=== PATIENT | female | born 1985 | race Caucasian/White ===

== ENCOUNTER 2018-08-22 10:12 | Outpatient (CLI) | payer MEDICAID | END 2018-08-22 10:13 | disposition home or self-care (01) | LOC: C.PAT 10:12 | DX: J34.2 Deviated nasal septum (principal); J34.3 Hypertrophy of nasal turbinates; J32.0 Chronic maxillary sinusitis; J32.1 Chronic frontal sinusitis; J32.2 Chronic ethmoidal sinusitis; J32.3 Chronic sphenoidal sinusitis ==

== ENCOUNTER 2018-08-30 06:51 | Observation (INO) | payer MEDICAID ==
[2018-08-10 12:51] VITALS: BMI 24.3
[2018-08-30] MEDS ORDERED: ceFAZolin 1 gm in NS 1 GM/100 ML BAG IVPB ONE (06:59)
[2018-08-30] MEDS ORDERED: EPINEPHrine 1:1000 Nasal Sol(30mL) ONE (06:59)
[2018-08-30] MEDS ORDERED: Lidocaine/Epinephrine 1% 1:100000 10 ML IJ ONE (07:00)
[2018-08-30] MEDS ORDERED: Propofol 10 mg/ml Inj (20 ML) ONE (08:21)
[2018-08-30] MEDS ORDERED: Midazolam 2 MG/2 ML VIAL ONE (08:22)
[2018-08-30] MEDS ORDERED: Acetaminophen-Codeine 300/30 mg Tab PO PRN (08:43)
[2018-08-30] MEDS: HYDROmorphone 0.5 mg/0.5 ml ISec IVP PRN ×3 (10:49→13:37)
[2018-08-30] MEDS ORDERED: HYDROmorphone 0.5 mg/0.5 ml ISec ONE (10:52)
--- NOTE | 2018-08-30 11:31 | CP.PCM.PN ---
Subjective - Date & Time of Evaluation Date of Evaluation: 08/30/18 Time of Evaluation: 11:00 - Subjective Subjective: patient brought o recovery room awake and stable. Uneventful perioperative status. In pacu nurse states patient complaining of chest pain no radiating. Stable vitals, 101/62 HR 65 100% 12 lead EKG completed industrial ecologist called Dr Lomeli no previous EKG available for comparison. Troponin level drawn. No further complaints at this time will continue to observe. No known past medical history. Objective - Vital Signs/Intake and Output Vital Signs (last 24 hours): Temp Pulse Resp BP Pulse Ox 97.8 F 67 18 99/65 L 100 08/30/18 07:40 08/30/18 07:40 08/30/18 07:40 08/30/18 07:40 08/30/18 07:40 Intake and Output: 08/30/18 08/30/18 06:59 18:59 Intake Total 800 Balance 800 - Medications Medications: Current Medications Acetaminophen (Tylenol 325mg Tab) 650 mg PO Q6 PRN PRN Reason: Pain, moderate (4-7) Hydromorphone HCl (Dilaudid) 0.5 mg IVP Q5M PRN PRN Reason: Pain, moderate (4-7) Stop: 08/30/18 12:46 Last Admin: 08/30/18 11:20 Dose: 0.5 mg Dextrose/Sodium Chloride (Dextrose 5%/0.45% Ns 1000 Ml) 1,000 mls @ 100 mls/hr IV .Q10H RENEE Ondansetron HCl (Zofran Inj) 4 mg IVP ONCE PRN PRN Reason: Nausea/Vomiting Stop: 08/30/18 12:46
--- NOTE | 2018-08-30 12:49 | OP ---
PROCEDURE DATE: 08/30/2018 PREOPERATIVE DIAGNOSES: Deviated septum, large turbinates, sinusitis. POSTOPERATIVE DIAGNOSES: Deviated septum, large turbinates, sinusitis. PROCEDURES: Septoplasty, endoscopic bilateral maxillary antrostomy, endoscopic bilateral ethmoidectomy, endoscopic bilateral sphenoidotomy, endoscopic bilateral frontal sinusotomy, endoscopic bilateral inferior turbinate reduction. SIGNIFICANT FINDINGS: Deviated septum, large turbinates, sinusitis, maxillary antrum stenosed on both sides, frontal recess stenosed on both sides, sphenoid antrum stenosed on both sides, sinusitis changes noted in the ethmoid sinuses. DESCRIPTION OF PROCEDURE: The patient was brought into room, placed in supine position. Anesthesia initiated through an ET tube. The patient was draped in usual manner. The navigation was set up and used throughout the case in order to ensure that the skull base and orbit were not entered. Adrenaline-soaked pledgets were inserted into nasal cavity, remained there for 5 minutes and removed. The septum was injected with lidocaine with epinephrine on both sides. A Owen incision was made on the left and mucoperichondrial flap was raised. A vertical incision was made in the cartilage, leaving a 1.5 cm of the anterior superior strut and mucoperichondrial flap was raised on the other side. Deviated portion of the cartilage and bone were removed using forceps and chisel. A quilting suture was used to suture the two flaps together and close the Orason incision. A 0-degree scope was inserted into the nasal cavity and the inferior turbinates were noted to be enlarged and reduced, going from an inferior to superior, anterior posterior direction on both sides, first on the left and then on the right. Bleeding was controlled using suction cautery. Attention was turned to the left and the inferior turbinate was injected with lidocaine and epinephrine and medialized. The uncinate process was medialized using a Corn elevator and removed using forceps. A debrider was used to enter the ethmoid bulla inferomedially going posteriorly to the basal lamella anterior and superiorly until the ethmoid bulla was removed. The basal lamella was entered. Posterior ethmoid cells were entered and opened. The skull base was identified and followed anteriorly all the way to the area of anterior ethmoid air cells. Frontal recess was noted to be stenosed and opened using forceps. The maxillary antrum was noted to be stenosed and opened using forceps. Attention was turned to the other side after bleeding was controlled on the left. The middle turbinate was injected with lidocaine with epinephrine and medialized. The uncinate process was medialized using a Corn elevator and removed using forceps. A debrider was used to enter the ethmoid bulla inferomedially going posteriorly to the basal lamella anterior and superiorly until the ethmoid bulla was removed. The basal lamella was entered. The posterior ethmoid cells were entered and opened. The skull base was identified and followed anteriorly all the way to the area of the anterior ethmoid air cells. Frontal recess was noted to be stenosed and opened using forceps. The maxillary antrum was noted to be stenosed and opened using forceps. Bleeding was controlled using suction cautery. The sphenoid antrum was noted to be stenosed and opened using forceps. Attention was turned back to the left. The sphenoid antrum was noted to be stenosed and opened using forceps. Bleeding was controlled. Stents were placed. Splints were placed. The patient was taken off anesthesia and taken to recovery room in stable manner. Freeman Gottlieb MD [facility]
--- NOTE | 2018-08-30 14:33 | CP.PCM.CON ---
<Carmelina Bell - Last Filed: 08/30/18 18:17> History of Present Illness - History of Present Illness History of Present Illness: Cardiology Consult for Dr. Jackson: 33 year old female with no past medical history complains of chest pain s/p septoplasty for a deviated septum. Patient states after her surgery the pain was located in the substernal area radiating to her back. She states now it is no longer radiating. She states the pain is a pressure-like and it comes and goes and lasts for 10 minutes. She states nothing makes the pain better or worse. She states she just feels tired. She states she has never had this pain before. PMD: Dr. Lomeli Past Medical history: denies Past Surgical history: x3 Medications: denies Allergies: Codeine - swelling and itching Family History: Dad - Diabetes Social History: denies smoking, alcohol or illicit drug use. Review of Systems - Constitutional Constitutional: absent: Chills, Fever - EENT Eyes: absent: Blurred Vision - Cardiovascular Cardiovascular: Chest Pain. absent: Dyspnea, Leg Edema, Palpitations - Respiratory Respiratory: absent: Dyspnea - Gastrointestinal Gastrointestinal: absent: Abdominal Pain, Nausea, Vomiting - Musculoskeletal Musculoskeletal: absent: Numbness, Tingling - Neurological Neurological: absent: Dizziness Past Patient History - Infectious Disease Hx of Infectious Diseases: None - Past Medical History & Family History Past Medical History?: Yes - Past Social History Smoking Status: Never Smoked - HEENT Hx HEENT Problems: Yes Other/Comment: HX: DEVIATED SEPTUM, ENLARGED TURBINATES, MAXILLARY SINSUS, FRONTAL SINSUS, SPHENOID SINSUS. - SURGICAL HISTORY Hx Surgeries: Yes Hx Section: Yes (X3) - ANESTHESIA Hx Anesthesia: Yes Hx Anesthesia Reactions: No Hx Malignant Hyperthermia: No Meds Allergies/Adverse Reactions: Allergies Allergy/AdvReac Type Severity Reaction Status Date / Time hydrocodone Allergy SWELLING Verified 08/31/18 15:55 - Medications Medications: Current Medications Acetaminophen (Tylenol 325mg Tab) 650 mg PO Q6 PRN PRN Reason: Pain, moderate (4-7) Aspirin (Aspirin Chewable) 81 mg PO DAILY RENEE Dextrose/Sodium Chloride (Dextrose 5%/0.45% Ns 1000 Ml) 1,000 mls @ 100 mls/hr IV .Q10H RENEE Rosuvastatin Calcium (Crestor) 40 mg PO DAILY [facility] Physical Exam - Constitutional Appears: Non-toxic, No Acute Distress - Head Exam Head Exam: ATRAUMATIC, NORMAL INSPECTION - Eye Exam Eye Exam: EOMI, Normal appearance - ENT Exam ENT Exam: Mucous Membranes Dry - Respiratory Exam Respiratory Exam: Clear to Auscultation Bilateral, NORMAL BREATHING PATTERN - Cardiovascular Exam Cardiovascular Exam: REGULAR RHYTHM, RRR, +S1, +S2. absent: Tachycardia, Diastolic murmur, Gallop, JVD, Systolic Murmur - GI/Abdominal Exam GI & Abdominal Exam: Normal Bowel Sounds, Soft. absent: Tenderness - Extremities Exam Extremities exam: Positive for: normal capillary refill, normal inspection, pedal pulses present. Negative for: pedal edema, tenderness - Neurological Exam Neurological exam: Alert, Oriented x3 - Skin Skin Exam: Normal Color Results - Vital Signs Recent Vital Signs: Last Vital Signs Temp 97 F L 08/30/18 10:44 Pulse 66 08/30/18 14:00 Resp 15 08/30/18 14:00 BP 116/77 08/30/18 14:00 Pulse Ox 100 08/30/18 14:00 - Labs Labs: Laboratory Results - last 24 hr 08/30/18 11:35 Troponin I < 0.0120 Assessment & Plan - Assessment and Plan (Free Text) Assessment: Chest pain - EKG: t-wave depression - Trop: negative - f/u ECHO - f/u stress test 08/31/[address] Manuel Bell PGY-2 <Tera Jackson - Last Filed: 08/31/18 21:26> Results - Vital Signs Recent Vital Signs: Last Vital Signs Temp 97.7 F 08/31/18 07:00 Pulse 63 08/31/18 07:00 Resp 20 08/31/18 07:00 BP 99/67 L 08/31/18 07:00 Pulse Ox 100 08/31/18 07:00 - Labs Labs: Laboratory Results - last 24 hr 08/30/18 23:02 Total Creatine Kinase 61 CK-MB (Mass) 0.74 Troponin I < 0.0120 Assessment & Plan - Assessment and Plan (Free Text) Assessment: Patient examined and evaluated personally by me. Plan of care d/w the medical research scientist and as documented
[2018-08-30 18:09] LABS: CK-MB 0.85 ng/mL (0.0-3.38)
[2018-08-30 20:11] VITALS: RESP 20
[2018-08-30] MEDS: Dextrose 5%/0.45% NS 1,000 ML IV SCH (21:00)
--- NOTE | 2018-08-30 21:26 | CP.PCM.HP ---
Present on Admission - Present on Admission Any Indicators Present on Admission: No Past Patient History - Infectious Disease Hx of Infectious Diseases: None - Past Medical History & Family History Past Medical History?: Yes - Past Social History Smoking Status: Never Smoked - CARDIAC Hx Cardiac Disorders: No - PULMONARY Hx Respiratory Disorders: No - NEUROLOGICAL Hx Neurological Disorder: No - HEENT Hx HEENT Problems: Yes Hx Sinusitis: Yes Other/Comment: HX: DEVIATED SEPTUM, ENLARGED TURBINATES, MAXILLARY SINSUS, FRONTAL SINSUS, SPHENOID SINSUS. - RENAL Hx Chronic Kidney Disease: No - ENDOCRINE/METABOLIC Hx Endocrine Disorders: No - HEMATOLOGICAL/ONCOLOGICAL Hx Blood Disorders: No - INTEGUMENTARY Hx Dermatological Problems: No - MUSCULOSKELETAL/RHEUMATOLOGICAL Hx Falls: No - GASTROINTESTINAL Hx Gastrointestinal Disorders: No - GENITOURINARY/GYNECOLOGICAL Hx Genitourinary Disorders: No - PSYCHIATRIC Hx Substance Use: No - SURGICAL HISTORY Hx Surgeries: Yes Hx Section: Yes (X3) Hx Tubal Ligation: Yes - ANESTHESIA Hx Anesthesia: Yes Hx Anesthesia Reactions: No Hx Malignant Hyperthermia: No Meds Allergies/Adverse Reactions: Allergies Allergy/AdvReac Type Severity Reaction Status Date / Time hydrocodone Allergy SWELLING Verified 08/31/18 15:55 Results - Vital Signs Recent Vital Signs: Last Vital Signs Temp 97.9 F 08/30/18 18:40 Pulse 71 08/30/18 18:40 Resp 20 08/30/18 18:40 BP 112/73 08/30/18 18:40 Pulse Ox 100 08/30/18 18:40 - Labs Labs: Laboratory Results - last 24 hr 08/30/18 08/30/18 11:35 17:34 Total Creatine Kinase 75 CK-MB (Mass) 0.85 Troponin I < 0.0120 < 0.0120
[2018-08-30 23:49] LABS: CK-MB 0.74 ng/mL (0.0-3.38)
--- NOTE | 2018-08-31 04:21 | CARD ---
APPROVED REPORT Date of service: 08/30/2018 EXAM: Two-dimensional and M-mode echocardiogram with Doppler and color Doppler. Other Information Quality : TDSRhythm : INDICATION Chest Pain 2D DIMENSIONS IVC0.00 cm M-Mode DIMENSIONS Left Atrium (MM)2.55 (2.5-4.0cm)IVSd0.65 (0.7-1.1cm) Aortic Root2.99 (2.2-3.7cm)LVDd4.48 (4.0-5.6cm) Aortic Cusp Exc.1.41 (1.5-2.0cm)PWd0.49 (0.7-1.1cm) FS (%) 40 %LVDs2.71 (2.0-3.8cm) LVEF (%)70 (>50%) Mitral Valve MV E Csnvwvqf19.8cm/sMV A Dztzuusl29.9cm/sE/A ratio3.4 TDI Lateral E' Peak V19.51cm/sMedial E' Peak V17.58cm/sE/Lateral E'4.4 E/Medial E'4.9 Tricuspid Valve TR Peak Fvbskjld141oq/sTR Peak Gr.63qqCoTMUD58vbKc LEFT VENTRICLE The left ventricle is normal size. There is normal left ventricular wall thickness. Left ventricle systolic function is normal. The Ejection Fraction is 65-70%. There is normal LV segmental wall motion. The left ventricular diastolic function is normal. RIGHT VENTRICLE The right ventricle is normal size. There is normal right ventricular wall thickness. The right ventricular systolic function is normal. ATRIA The left atrium size is normal. The right atrium size is normal. The interatrial septum is intact with no evidence for an atrial septal defect. AORTIC VALVE The aortic valve is normal in structure. No aortic regurgitation is present. There is no aortic valvular stenosis. MITRAL VALVE The mitral valve is normal in structure. There is no evidence of mitral valve prolapse. There is no mitral valve stenosis. There is no mitral valve regurgitation noted. TRICUSPID VALVE The tricuspid valve is normal in structure. There is mild tricuspid regurgitation. Right ventricular systolic pressure is estimated at 30-40 mmHg. There is mild pulmonary hypertension. PULMONIC VALVE The pulmonic valve is not well visualized. There is no pulmonic valvular regurgitation. GREAT VESSELS The aortic root is normal in size. PERICARDIAL EFFUSION There is no significant pericardial effusion. <Conclusion> Left ventricle systolic function is normal. The Ejection Fraction is 65-70%. No aortic regurgitation is present. There is no mitral valve regurgitation noted. There is mild tricuspid regurgitation. There is mild pulmonary hypertension. There is no pulmonic valvular regurgitation.
[2018-08-31] MEDS: Dextrose 5%/0.45% NS 1,000 ML IV SCH ×2 (04:45→06:30)
[2018-08-31] MEDS ORDERED: Caffeine Citrated **INJ** 20 MG/ML IV ONE (07:35)
[2018-08-31 07:46] VITALS: BP 99/67; TEMP 97.7; O2SAT 100
[2018-08-31 08:01] VITALS: PULSE 63
--- NOTE | 2018-08-31 08:08 | HP ---
CHIEF COMPLIANT: Chest pain. HISTORY OF PRESENT ILLNESS: This is a 33-year-old Greek female with no significant past medical history. She underwent ear, nose, and throat surgery and postoperatively she developed chest pain and Rapid Response was called and the patient was transported to telemetry floor and admitted. The patient denies any history of diabetes, hypertension, hyperlipidemia, or smoking. She denies any family history of premature coronary artery disease. The patient denies any nausea or vomiting. She denies any dyspepsia. She denies any polyuria, polydipsia, polyphagia. She denies any history of chest pain in the past. She denies any cough or sore throat. She is postop, she has a nasal packing and she has some bleeding in the throat. No fever. No chills. PAST MEDICAL HISTORY: Nothing significant. SOCIAL HISTORY: Nonsmoker. Non-ETOH user. MEDICATION: At home, she is not on any medications. ALLERGIES: SHE IS ALLERGIC TO CODEINE. PHYSICAL EXAMINATION: GENERAL: A young female in no distress with nasal packing. VITAL SIGNS: Blood pressure 112/73, pulse 72, respiratory rate 20, and temperature 97.9. SKIN: No rashes. No bruises. No purpura. HEENT: Atraumatic and normocephalic. Negative pallor. Negative jaundice. Extraocular movements are intact. NECK: Supple. No JVD. No lymph node. No thyromegaly. CHEST: Chest wall, bilateral symmetrical expansion. No tenderness. LUNGS: Clear. No rales. No rhonchi. CVS: PMI not localized. S1 and S2 regular. No heave. No thrill. ABDOMEN: Soft and nontender. Bowel sounds are positive. RECTAL: Deferred. PELVIC: Deferred. EXTREMITIES: No clubbing, cyanosis, or edema. DELIVERY ARCHITECT: Awake, alert, and oriented x3. ASSESSMENT: 1. Chest pain, rule out myocardial infarction. 2. Ear, nose, and throat surgery. PLAN: Admit, cardiac enzymes, Cardiology evaluation. Alex Gray MD
--- NOTE | 2018-08-31 10:22 | CP.PCM.PN ---
<Carmelina Bell - Last Filed: 08/31/18 14:10> Subjective - Date & Time of Evaluation Date of Evaluation: 08/31/18 Time of Evaluation: 11:00 - Subjective Subjective: Cardiology Progress Note: Patient was seen and examined at bedside in the AM. Patient states she feels well and cannot wait to go home. Patient denies chest pain, shortness of breath, palpitaitons, nausea, vomiting, diarrhea or constipation. Objective - Vital Signs/Intake and Output Vital Signs (last 24 hours): Temp Pulse Resp BP Pulse Ox 97.7 F 63 20 99/67 L 100 08/31/18 07:00 08/31/18 07:00 08/31/18 07:00 08/31/18 07:00 08/31/18 07:00 Intake and Output: 08/31/18 08/31/18 06:59 18:59 Intake Total 1240 Balance 1240 - Medications Medications: Current Medications Acetaminophen (Tylenol 325mg Tab) 650 mg PO Q6 PRN PRN Reason: Pain, moderate (4-7) Aspirin (Aspirin Chewable) 81 mg PO DAILY [facility] Dextrose/Sodium Chloride (Dextrose 5%/0.45% Ns 1000 Ml) 1,000 mls @ 100 mls/hr IV .Q10H RENEE Last Admin: 08/31/18 06:30 Dose: 100 mls/hr Ibuprofen (Motrin Tab) 800 mg PO Q8 PRN PRN Reason: Pain, moderate (4-7) Last Admin: 08/30/18 17:00 Dose: 800 mg Rosuvastatin Calcium (Crestor) 40 mg PO DAILY [facility] - Constitutional Appears: No Acute Distress - Head Exam Head Exam: ATRAUMATIC, NORMAL INSPECTION - Eye Exam Eye Exam: EOMI, Normal appearance, PERRL Pupil Exam: NORMAL ACCOMODATION - ENT Exam ENT Exam: Mucous Membranes Moist - Respiratory Exam Respiratory Exam: Clear to Ausculation Bilateral, NORMAL BREATHING PATTERN - Cardiovascular Exam Cardiovascular Exam: REGULAR RHYTHM, +S1, +S2 - GI/Abdominal Exam GI & Abdominal Exam: Soft, Normal Bowel Sounds. absent: Tenderness - Extremities Exam Extremities Exam: Normal Inspection - Neurological Exam Neurological Exam: Alert, Awake, Oriented x3 - Psychiatric Exam Psychiatric exam: Normal Affect - Skin Skin Exam: Normal Color Assessment and Plan - Assessment and Plan (Free Text) Assessment: 33 year old female with no past medical history complains of chest pain s/p septoplasty for a deviated septum. Chest pain - resolved - EKG: t-wave depression - Trop: negative x3 - ECHO: EF 65-70%; reviewed by Dr. Jackson - ECHO normal - stress test 08/31/18: reviewed by Dr. Jackson - normal Thank you for this consult. Case discussed with Dr. Manuel Bell PGY-2 <Tera Jackson - Last Filed: 08/31/18 21:26> Objective - Vital Signs/Intake and Output Vital Signs (last 24 hours): Temp Pulse Resp BP Pulse Ox 97.7 F 63 20 99/67 L 100 08/31/18 07:00 08/31/18 07:00 08/31/18 07:00 08/31/18 07:00 08/31/18 07:00 Assessment and Plan - Assessment and Plan (Free Text) Assessment: Patient examined and evaluated personally by me. Plan of care d/w the medical case manager and as documented
--- NOTE | 2018-08-31 14:34 | CARD ---
APPROVED REPORT Date of service: 08/30/2018 EKG Measurement Heart [id number] <Conclusion> Normal sinus rhythm Low voltage QRS Nonspecific T wave abnormality Abnormal ECG
--- NOTE | 2018-08-31 15:20 | CARD ---
APPROVED REPORT Date of service: 08/30/2018 EKG Measurement Heart [id number] <Conclusion> Normal sinus rhythm Low voltage QRS T wave abnormality, consider anterior ischemia Abnormal ECG
--- NOTE | 2018-08-31 23:12 | CP.PCM.DIS ---
Provider - Provider Date of Admission: 08/30/18 13:00 Attending physician: Alex Gray MD Consults: 08/30/18 11:51 Cardiology Consult Routine Comment: c/o pressure to chest Consulting Provider: Alex Gray Consulting Physician: Alex Gray Reason for Consult: pressure to chest 08/30/18 12:35 Cardiology Consult Routine Comment: chest pain Consulting Provider: Tera Jackson Consulting Physician: Tera Jackson Reason for Consult: chest pain Time Spent in preparation of Discharge (in minutes): 25 Hospital Course - Lab Results Lab Results: Most Recent Lab Values Total Creatine Kinase 61 U/L (30-135) 08/30/18 23:02 CK-MB (Mass) 0.74 ng/mL (0.0-3.38) 08/30/18 23:02 Troponin I < 0.0120 ng/mL (0.00-0.120) 08/30/18 23:02 Discharge Exam - Head Exam Head Exam: ATRAUMATIC, NORMAL INSPECTION Discharge Plan - Follow Up Plan Condition: GOOD Disposition: HOME/ ROUTINE Instructions: Chest Pain (DC), Septoplasty (DC) Additional Instructions: Please follow up with Dr. Gottlieb office tomorrow at appointment time Please follow up with Dr. Yany Pickering office in 1 week Please resume all home medications Please f/u with Dr. Gottlieb office tomorrow at appointment time Referrals: Freeman Gottlieb MD [Staff Provider] - 09/01/18
--- NOTE | 2018-09-01 02:53 | DS ---
ADMISSION DIAGNOSIS: Chest pain. DISCHARGE DIAGNOSES: 1. Noncoronary chest pain. 2. Deflected nasal septum. HISTORY OF PRESENT ILLNESS: This is a 33-year-old [place] female with history of nasal surgery, and after nasal surgery, she developed chest pain. OR was ruled out with three sets of negative cardiac enzymes negative. The patient's condition is stable upon discharge, and she is for discharge. PHYSICAL EXAMINATION: VITAL SIGNS: Blood pressure 99/67, pulse 69, respiratory rate 20, temperature 97.7. LABORATORY DATA: Cardiac enzymes x3 negative. CONDITION UPON DISCHARGE: The patient's condition is stable. She is for discharge. Alex Gray MD
--- NOTE | 2018-09-05 16:59 | CARD ---
APPROVED REPORT Date of service: 08/31/2018 Protocol: LEXISCAN Test Type: LEXISCAN Test Indications: CHEST PAIN Medical History: CP Target HR: 186 bpm Resting ECG: NSR WITH FLATTENED ST Resting Heart Rate: 67 bpm Resting Blood Pressure: 126/80mmHg submaximum (85%): 158 bpm TEST SUMMARY [id number].01:[id number]/80.0. INFUSIONDOSE 100:300.00.01.085/.0. [id number]/80.0. PROCEDURE Pharmacologic stress testing was performed using 0.4mg per 5ml of regadenoson given intravenously over 7-10 seconds. POST EXERCISE Reason for Termination: Protocol Completed Target HR: No Max HR: 85 bpm 68% of Maximum Predicted HR: 186 bpm Exercise duration: 00:30 min:sec, 0 Stage Exercise capacity: 1.0METs Max Blood Pressure: 126/80mmHg Blood Pressure response to exercise: normal resting BP - appropriate response Heart Rate response to exercise: appropriate Chest Pain: No, none Angina index: 0 Arrhythmia: No, none ST Change: Yes, Depression horizontal 1/2 MM V4-V6 Deviation: 0 mm INTERPRETATION Stress EKG Conclusion: NEGATIVE LEXISCAN STRESS TEST NORMAL BP RESPONSE TO LEXISCAN NUCLEAR STUDIES TO BE READ SEPARATELY EXAM: Myocardial Perfusion STRESS/REST Imaging Protocol The imaging protocol used to acquire images was Stress Tc-99m/rest Tc-99m 1 day Stress Spect myocardial perfusion imaging was performed in supine position 44 minutes following the injection of 12.9 mCi of Tc-99 Myoview. Gated Rest Spect was performed 45 minutes after intravenous 33 mCi Tc-99 Myoview injection. The images were gated to evaluate regional wall motion and calculate ventricular ejection fraction.Images were reconstructed using backfilter projection method in short horizontal and verticle long axis. Spect slices were generated. RESTING DATA EDV75.98djNR7.80L/min ESV19.00mlMyocardial Fogq865.00g Av. Heart Rate68.00bpm EF75.00% STRESS DATA EDV72.06njIZ3.20L/min ESV17.00mlMyocardial Yrpj572.00g EF76.00% Regional WT score at stress:0.00 Regional WM score at stress:0.00 Summed WT score at stress:0.00 Av. Heart Rate77.00bpmSummed WM score at stress:2.00 LV Perf. Quant 17 Seg. SSS0.00 17 Seg. SRS3.00 17 Seg. SDS0.00 Stress Defect Extent (% LAD)0.00Rest Defect Extent (% LAD)7.50Rev. Defect Extent (% LAD)0.00 Stress Defect Extent (% LCX)10.00Rest Defect Extent (% LCX)5.00Rev. Defect Extent (% LCX)10.00 Stress Defect Extent (% RCA)0.00Rest Defect Extent (% RCA)0.00Rev. Defect Extent (% RCA)0.00 Stress Defect Extent (% MERYL)1.70Rest Defect Extent (% MERYL)3.50Rev. Defect Extent (% MERYL)1.70 IMPRESSION Normal Myocardial Perfusion exercise stress study Left Ventricle LV Size/Shape: The left ventricle is normal size. LV Function:Left ventricle systolic function is normal. The Ejection Fraction is >70%. Regional Wall Motion:There is normal left ventricular wall motion. Metabolism/Perfusion Defects: There is no scan evidence of reversible ischemia noted. There are no defects. Conclusion 1. There is no scan evidence of reversible ischemia noted. 2. Left ventricle systolic function is normal. 3. The Ejection Fraction is >70%.
== END 2018-08-31 16:19 | disposition home or self-care (01) ==
LOC: C.SDS 06:51 → INTOOBSV 13:00 → C.9S 13:00 → C.6T 18:41
PROVIDERS: ADMIT Internal Medicine; ATTEND Internal Medicine
PROC: 09CX8ZZ Extirpation of Matter from Left Sphenoid Sinus, Via Natural or Artificial Opening Endoscopic (ICD-10-PCS; 2018-08-30)
PROC: 09TV8ZZ Resection of Left Ethmoid Sinus, Via Natural or Artificial Opening Endoscopic (ICD-10-PCS; 2018-08-30)
PROC: 09TL0ZZ Resection of Nasal Turbinate, Open Approach (ICD-10-PCS; 2018-08-30)
PROC: 09TU8ZZ Resection of Right Ethmoid Sinus, Via Natural or Artificial Opening Endoscopic (ICD-10-PCS; 2018-08-30)
PROC: 09CW8ZZ Extirpation of Matter from Right Sphenoid Sinus, Via Natural or Artificial Opening Endoscopic (ICD-10-PCS; 2018-08-30)
PROC: 099R8ZZ Drainage of Left Maxillary Sinus, Via Natural or Artificial Opening Endoscopic (ICD-10-PCS; 2018-08-30)
PROC: 099Q8ZZ Drainage of Right Maxillary Sinus, Via Natural or Artificial Opening Endoscopic (ICD-10-PCS; 2018-08-30)
PROC: 8E09XBZ Computer Assisted Procedure of Head and Neck Region (ICD-10-PCS; 2018-08-30)
PROC: 09BM0ZZ Excision of Nasal Septum, Open Approach (ICD-10-PCS; principal; 2018-08-30 08:45)
DX: J34.2 Deviated nasal septum (principal); R07.89 Other chest pain; J32.2 Chronic ethmoidal sinusitis; J34.3 Hypertrophy of nasal turbinates; J34.89 Other specified disorders of nose and nasal sinuses; Z98.891 History of uterine scar from previous surgery; Z98.51 Tubal ligation status; Z83.3 Family history of diabetes mellitus
CPT/HCPCS: 30620; 30801; 31255; 31256; 31276; 31287; 36415; 61782; 78452; 84484; 88304; 88311; 93005; 93017; 93306; A9502; G0378; J0690; J0706; J1170; J2250; J2704; J2785; J3010; J7042; J7120

== ENCOUNTER 2018-12-02 15:50 | Outpatient (CLI) | payer MEDICAID | END 2018-12-02 15:51 | disposition home or self-care (01) | LOC: C.MRIC 15:50 | DX: R51 Headache (principal); J01.90 Acute sinusitis, unspecified; J30.9 Allergic rhinitis, unspecified ==